=== PATIENT | female | born 1950 | race Caucasian/White ===

== ENCOUNTER 2018-04-09 05:10 | Inpatient (IN) | payer MEDICARE, BC ==
[2018-03-27 16:29] LABS: BASOPHILS % (AUTO) 0.4 % (0-1); EOSINOPHILS # (AUTO) 1.1 X10'3 (0-0.9); EOSINOPHILS % (AUTO) 12.4 % (0-6); LYMPHOCYTES % (AUTO) 22.7 % (21-51); MEAN CORPUSCULAR HEMOGLOBIN 30.6 PG (27.0-31.0); MEAN CORPUSCULAR HGB CONC 33.1 % (33.0-36.5); MEAN CORPUSCULAR VOLUME 92.2 FL (78-98); MEAN PLATELET VOLUME 7.3 FL (7.4-10.4); MONOCYTES # (AUTO) 0.6 X10'3 (0-0.9); MONOCYTES % (AUTO) 6.8 % (2-12); NEUTROPHILS % (AUTO) 57.7 % (42-75); PRE OP HEMATOCRIT 37.8 % (35.0-45.0); PRE OP HEMOGLOBIN 12.5 g/dL (12.0-16.0); PRE OP PLATELET COUNT 336 X10'3 (140-440); RED CELL DISTRIBUTION WIDTH 13.8 % (11.5-14.5)
[2018-03-27 16:33] LABS: PRE OP INR 1.1 INR; PRE OP PROTIME 10.8 SECONDS (9.0-12.0)
[2018-03-27 16:34] LABS: ALBUMIN 3.8 G/DL (3.4-5.0); ALKALINE PHOSPHATASE 58 IU/L (46-116); BLOOD UREA NITROGEN 25 MG/DL (7-18); BUN/CREATININE RATIO 30.1 (6.6-38.0); CALCIUM 9.5 MG/DL (8.5-10.1); CHLORIDE 103 MMOL/L (99-107); CREATININE 0.83 MG/DL (0.40-0.90); PRE OP ALT 22 U/L (30-65); PRE OP ANION GAP 6 (8-16); PRE OP AST 18 U/L (10-37); PRE OP BILIRUB, TOTAL 0.3 MG/DL (0.0-1.0); PRE OP GLUCOSE 100 MG/DL (70-104); PRE OP POTASSIUM 4.2 MMOL/L (3.4-5.1); PRE OP SODIUM 140 MMOL/L (135-145); TOTAL CARBON DIOXIDE 30.6 MMOL/L (24-32); TOTAL PROTEIN 7.6 G/DL (6.4-8.2); eGFR 69 ML/MIN
[2018-04-09] VITALS (18 sets, daily range): BP systolic 115–157; BP diastolic 56–100
[~2018-04-09] VITALS: Ht 147.3 cm; Wt 92.1 kg
[~2018-04-09 05:10] MED LIST: ALBU8.5H8 INH; ALEN10TA7 PO; CHOL10002 PO; FLUT12AE9 INH; IBUP-24 PO; LOSA25TA12 PO; MAGN400C PO; NAPR220T67 PO; OMEP40CA37 PO; OSC500T PO; ringers solution, lacted 1,000 ML IV SCH
[2018-04-09] MEDS ORDERED: famotidine 20mg tablet PO ONE (05:30)
[2018-04-09] MEDS ORDERED: cefazolin/dext.iso 2gm/100 ML IV ONE (05:30)
[2018-04-09] MEDS ORDERED: tranexamic acid inj. 1,000 MG in normal saline 100ml IV soln 90 ML IV ONE (05:30)
[2018-04-09] MEDS ORDERED: vancomycin inj 1,500 MG in normal saline 300ml IV soln IV ONE (05:30)
[2018-04-09] MEDS ORDERED: albuterol 2.5 MG/3 ML nebule NEB ONE (05:30)
[2018-04-09] MEDS ORDERED: LIDOcaine 1% (10mg/ml) 2ml vial ONE (05:48)
[2018-04-09] MEDS ORDERED: fentaNYL/PF 50MCG/1 ML 2ML syringe ONE (07:21)
[2018-04-09] MEDS ORDERED: MIDAZolam 1mg/ml 10ml vial ONE (07:21)
[2018-04-09] MEDS ORDERED: BUPIVAcaine/dex-water/PF 7.5 mg/ml 2ml ampul ONE (07:22)
[2018-04-09] MEDS ORDERED: ringers solution, lacted 1,000 ML IV SCH (08:33)
[2018-04-09] MEDS ORDERED: proCHLORperazine 10 MG/2 ml inj IV PRN (08:35)
[2018-04-09] MEDS ORDERED: morphine 4 MG/ML inj SYRINge IV PRN ×2 (08:35)
[2018-04-09] MEDS ORDERED: meperidine/PF 25mg/ml syringe IV PRN ×3 (08:35)
[2018-04-09] MEDS ORDERED: ondansetron/PF 4mg/2ml inj IV PRN (08:35)
[2018-04-09] MEDS ORDERED: cloNIDine hcl/PF 100mcg/ml inj ONE (08:59)
[2018-04-09] MEDS ORDERED: ROPIVAcaine 0.5% (5mg/ml) 30ml vial ONE (09:26)
[2018-04-09] MEDS ORDERED: bisacodyl 10mg suppository rectal RC PRN (10:10)
[2018-04-09] MEDS ORDERED: diphenhydrAMINE 25mg capsule PO PRN ×2 (10:10)
[2018-04-09] MEDS ORDERED: magnesium hydroxide 30ml (MOM) UD suspension PO PRN (10:10)
[2018-04-09] MEDS ORDERED: HYDROcodone/acetaminophen 10/325mg tab PO PRN (10:10)
[2018-04-09] MEDS ORDERED: acetaminophen 325mg tablet PO PRN (10:10)
[2018-04-09] MEDS: HYDROmorphone 1 mg/ml syringe IV PRN ×3 (11:55→21:25)
[2018-04-09] MEDS: ketorolac tromethamine 15mg/ml inj. IV SCH ×2 (13:33→20:06)
[2018-04-09] MEDS: HYDROcodone/acetaminophen 10/325mg tab PO PRN (13:34)
[2018-04-09] MEDS: potassium Cl 20mEq in NS 1,000 ML IV SCH (13:42)
[2018-04-09] MEDS: ceFAZolin 1GM/D5W- ADD-VANTAGE 50 ML IV SCH ×2 (16:04→23:53)
[2018-04-09] MEDS: aspirin 81mg tablet.DR PO SCH (17:20)
[2018-04-09] MEDS ORDERED: vancomycin/NS 1 GM ADD-VANTAGE 250 ML IV SCH (20:00)
[2018-04-09] MEDS: sennosides 8.6mg tablet PO SCH (20:05)
[2018-04-09] MEDS: budesonide 0.5mg/2ml UD nebule IH SCH (20:33)
[2018-04-09] MEDS: albuterol 2.5 MG/3 ML nebule NEB PRN (21:47)
[2018-04-09] MEDS: ondansetron/PF 4mg/2ml inj IV PRN (22:03)
[2018-04-10] VITALS (7 sets, daily range): BP systolic 114–152; BP diastolic 44–83
[2018-04-10] MEDS: ketorolac tromethamine 15mg/ml inj. IV SCH ×2 (01:54→07:41)
[2018-04-10] MEDS: potassium Cl 20mEq in NS 1,000 ML IV SCH ×2 (04:35→20:30)
[2018-04-10] MEDS: HYDROcodone/acetaminophen 10/325mg tab PO PRN ×3 (05:31→17:02)
[2018-04-10 06:48] LABS: ALANINE AMINOTRANSFERASE 17 U/L (12-78); ALBUMIN 2.7 G/DL (3.4-5.0); ALBUMIN/GLOBULIN RATIO 0.8 (1.1-1.5); ALKALINE PHOSPHATASE 36 IU/L (46-116); ANION GAP 7 (8-16); ASPARTATE AMINO TRANSFERASE 14 U/L (10-37); BILIRUBIN,TOTAL 0.4 MG/DL (0.1-1.0); BLOOD UREA NITROGEN 25 MG/DL (7-18); BUN/CREATININE RATIO 28.1 (6.6-38.0); CALCIUM 8.2 MG/DL (8.5-10.1); CHLORIDE 105 MMOL/L (99-107); CREATININE 0.89 MG/DL (0.40-0.90); GLUCOSE 126 MG/DL (70-104); POTASSIUM 4.6 MMOL/L (3.5-5.1); SODIUM 137 MMOL/L (135-145); TOTAL CARBON DIOXIDE 24.7 MMOL/L (24-32); eGFR 63 ML/MIN
[2018-04-10 07:06] LABS: BASOPHILS % (AUTO) 0 % (0-1); EOSINOPHILS % (AUTO) 0 % (0-6); HEMATOCRIT 27.8 % (35.0-45.0); HEMOGLOBIN 9.2 g/dl (12.0-16.0); LYMPHOCYTES # (AUTO) 1.1 X10'3 (1.1-4.8); LYMPHOCYTES % (AUTO) 9.6 % (21-51); MEAN CORPUSCULAR HEMOGLOBIN 30.4 PG (27.0-31.0); MEAN PLATELET VOLUME 7.5 FL (7.4-10.4); MONOCYTES # (AUTO) 0.7 X10'3 (0-0.9); MONOCYTES % (AUTO) 5.9 % (2-12); NEUTROPHILS # (AUTO) 9.3 X10'3 (1.8-7.7); NEUTROPHILS % (AUTO) 84.5 % (42-75); PLATELET COUNT 250 X10'3 (140-440); RED BLOOD COUNT 3.02 X10'6 (4.20-5.60); RED CELL DISTRIBUTION WIDTH 14.1 % (11.5-14.5); WHITE BLOOD COUNT 11.1 X10'3 (4.5-11.0)
[2018-04-10] MEDS: aspirin 81mg tablet.DR PO SCH ×2 (07:34→17:01)
[2018-04-10] MEDS: pantoprazole 40mg Tablet.DR PO SCH (07:34)
[2018-04-10] MEDS: losartan 25mg tablet PO SCH (07:36)
[2018-04-10] MEDS: budesonide 0.5mg/2ml UD nebule IH SCH ×2 (07:50→20:12)
[2018-04-10] MEDS: albuterol 2.5 MG/3 ML nebule NEB PRN ×2 (07:50→20:12)
[2018-04-10] MEDS ORDERED: ALENDRONATE SODIUM 10 MG PO SCH (08:00)
[2018-04-10] MEDS: HYDROmorphone 1 mg/ml syringe IV PRN ×2 (18:22→23:53)
[2018-04-10] MEDS: sennosides 8.6mg tablet PO SCH (20:32)
[2018-04-10] MEDS: oxyCODONE/APAP 10/325mg tablet PO PRN (20:33)
[2018-04-11] MEDS: oxyCODONE/APAP 10/325mg tablet PO PRN ×5 (02:14→20:54)
[2018-04-11] MEDS: celeCOXIB 100mg capsule PO SCH ×2 (05:24→20:54)
[2018-04-11 06:00] VITALS: BP 140/52
[2018-04-11 06:05] LABS: BASOPHILS % (AUTO) 0.2 % (0-1); EOSINOPHILS # (AUTO) 0.3 X10'3 (0-0.9); EOSINOPHILS % (AUTO) 2.9 % (0-6); HEMATOCRIT 27.1 % (35.0-45.0); HEMOGLOBIN 8.9 g/dl (12.0-16.0); LYMPHOCYTES # (AUTO) 1.9 X10'3 (1.1-4.8); LYMPHOCYTES % (AUTO) 17.2 % (21-51); MEAN CORPUSCULAR HEMOGLOBIN 30.3 PG (27.0-31.0); MEAN CORPUSCULAR HGB CONC 32.8 % (33.0-36.5); MEAN CORPUSCULAR VOLUME 92.5 FL (78-98); MEAN PLATELET VOLUME 7.2 FL (7.4-10.4); MONOCYTES % (AUTO) 9.2 % (2-12); NEUTROPHILS # (AUTO) 7.9 X10'3 (1.8-7.7); NEUTROPHILS % (AUTO) 70.5 % (42-75); PLATELET COUNT 265 X10'3 (140-440); RED BLOOD COUNT 2.93 X10'6 (4.20-5.60); RED CELL DISTRIBUTION WIDTH 14.3 % (11.5-14.5); WHITE BLOOD COUNT 11.1 X10'3 (4.5-11.0)
[2018-04-11 07:13] LABS: ALANINE AMINOTRANSFERASE 19 U/L (12-78); ALBUMIN 2.9 G/DL (3.4-5.0); ALBUMIN/GLOBULIN RATIO 0.8 (1.1-1.5); ALKALINE PHOSPHATASE 53 IU/L (46-116); ANION GAP 8 (8-16); ASPARTATE AMINO TRANSFERASE 17 U/L (10-37); BILIRUBIN,TOTAL 0.4 MG/DL (0.1-1.0); BLOOD UREA NITROGEN 21 MG/DL (7-18); BUN/CREATININE RATIO 24.7 (6.6-38.0); CALCIUM 8.6 MG/DL (8.5-10.1); CHLORIDE 101 MMOL/L (99-107); CREATININE 0.85 MG/DL (0.40-0.90); GLUCOSE 119 MG/DL (70-104); POTASSIUM 4.2 MMOL/L (3.5-5.1); SODIUM 134 MMOL/L (135-145); TOTAL CARBON DIOXIDE 24.9 MMOL/L (24-32); TOTAL PROTEIN 6.7 G/DL (6.4-8.2); eGFR 67 ML/MIN
[2018-04-11] MEDS: ondansetron/PF 4mg/2ml inj IV PRN ×2 (07:36→18:44)
[2018-04-11] MEDS: albuterol 2.5 MG/3 ML nebule NEB PRN ×2 (07:50→19:38)
[2018-04-11] MEDS: budesonide 0.5mg/2ml UD nebule IH SCH ×2 (07:50→19:38)
[2018-04-11 10:00] VITALS: BP 145/50
[2018-04-11] MEDS: aspirin 81mg tablet.DR PO SCH ×2 (10:00→16:55)
[2018-04-11] MEDS: mag hydrox/Alum hydrox/simeth 30ml oral suspension PO PRN ×3 (10:21→20:53)
[2018-04-11] MEDS: pantoprazole 40mg Tablet.DR PO SCH (10:21)
[2018-04-11] MEDS: losartan 25mg tablet PO SCH (10:21)
[2018-04-11 18:00] VITALS: BP 153/57
[2018-04-11] MEDS: sennosides 8.6mg tablet PO SCH (20:54)
[2018-04-11 22:17] VITALS: BP 111/64
[2018-04-12] MEDS: oxyCODONE/APAP 10/325mg tablet PO PRN (05:04)
[2018-04-12 06:00] VITALS: BP 146/53
[2018-04-12 06:09] LABS: BASOPHILS % (AUTO) 0.2 % (0-1); EOSINOPHILS # (AUTO) 0.5 X10'3 (0-0.9); EOSINOPHILS % (AUTO) 6.1 % (0-6); HEMATOCRIT 25.6 % (35.0-45.0); HEMOGLOBIN 8.6 g/dl (12.0-16.0); LYMPHOCYTES # (AUTO) 1.4 X10'3 (1.1-4.8); MEAN CORPUSCULAR HEMOGLOBIN 30.8 PG (27.0-31.0); MEAN CORPUSCULAR HGB CONC 33.5 % (33.0-36.5); MEAN CORPUSCULAR VOLUME 91.9 FL (78-98); MEAN PLATELET VOLUME 7.1 FL (7.4-10.4); MONOCYTES # (AUTO) 0.6 X10'3 (0-0.9); MONOCYTES % (AUTO) 7.4 % (2-12); NEUTROPHILS # (AUTO) 5.7 X10'3 (1.8-7.7); NEUTROPHILS % (AUTO) 69.3 % (42-75); PLATELET COUNT 245 X10'3 (140-440); RED BLOOD COUNT 2.78 X10'6 (4.20-5.60); RED CELL DISTRIBUTION WIDTH 14.2 % (11.5-14.5); WHITE BLOOD COUNT 8.2 X10'3 (4.5-11.0)
[2018-04-12 06:27] LABS: ALANINE AMINOTRANSFERASE 17 U/L (12-78); ALBUMIN 2.7 G/DL (3.4-5.0); ALBUMIN/GLOBULIN RATIO 0.7 (1.1-1.5); ALKALINE PHOSPHATASE 52 IU/L (46-116); ANION GAP 9 (8-16); ASPARTATE AMINO TRANSFERASE 16 U/L (10-37); BILIRUBIN,TOTAL 0.6 MG/DL (0.1-1.0); BLOOD UREA NITROGEN 13 MG/DL (7-18); BUN/CREATININE RATIO 15.1 (6.6-38.0); CALCIUM 8.8 MG/DL (8.5-10.1); CHLORIDE 101 MMOL/L (99-107); CREATININE 0.86 MG/DL (0.40-0.90); GLUCOSE 130 MG/DL (70-104); SODIUM 136 MMOL/L (135-145); TOTAL CARBON DIOXIDE 25.9 MMOL/L (24-32); TOTAL PROTEIN 6.5 G/DL (6.4-8.2); eGFR 66 ML/MIN
[2018-04-12] MEDS ORDERED: ASPI-1071 PO (07:03)
[2018-04-12] MEDS ORDERED: PER10325T PO (07:03)
[2018-04-12] MEDS: aspirin 81mg tablet.DR PO SCH (07:27)
[2018-04-12] MEDS: mag hydrox/Alum hydrox/simeth 30ml oral suspension PO PRN (07:27)
[2018-04-12] MEDS: losartan 25mg tablet PO SCH (07:27)
[2018-04-12] MEDS: celeCOXIB 100mg capsule PO SCH (07:27)
[2018-04-12] MEDS: pantoprazole 40mg Tablet.DR PO SCH (07:27)
[2018-04-12] MEDS: albuterol 2.5 MG/3 ML nebule NEB PRN (09:25)
[2018-04-12] MEDS: budesonide 0.5mg/2ml UD nebule IH SCH (09:25)
[2018-04-12 10:00] VITALS: BP 114/46
== END 2018-04-12 12:20 | disposition home or self-care (01) | DRG 470 ==
LOC: PAS IN 05:10 → EDSTATUS 07:30 → ORTHO 4S 11:11
PROVIDERS: ADMIT Orthopaedic Surgery; ATTEND Orthopaedic Surgery
PROC: 3E0T3BZ Introduction of Anesthetic Agent into Peripheral Nerves and Plexi, Percutaneous Approach (ICD-10-PCS; 2018-04-09)
PROC: 0SRC0J9 Replacement of Right Knee Joint with Synthetic Substitute, Cemented, Open Approach (ICD-10-PCS; principal; 2018-04-09 07:12)
DX: M17.11 Unilateral primary osteoarthritis, right knee (principal); D62 Acute posthemorrhagic anemia; Z68.41 Body mass index [BMI] 40.0-44.9, adult; I10 Essential (primary) hypertension; E66.9 Obesity, unspecified; J44.9 Chronic obstructive pulmonary disease, unspecified; K21.9 Gastro-esophageal reflux disease without esophagitis; Z79.899 Other long term (current) drug therapy
CPT/HCPCS: 36415; 80053; 85025; 85610; 85730; 86885; 86900; 86901; 86920; 87070; 93005; 94640; 94760; 97110; 97116; 97162; 97530; A6454; A7000; C1713; C1758; C1776; G0378; J0690; J0735; J1170; J1885; J2250; J2405; J2795; J3010; J3370; J3490; J7030; J7120; J7626